=== PATIENT | male | born 1980 ===

== ENCOUNTER 2022-03-11 21:48 | Outpatient (CLI) | payer SELFPAY | END 2022-03-11 21:49 | disposition home or self-care (01) | PROVIDERS: Visit Provider Family Medicine | DX: S09.90XA Unspecified injury of head, initial encounter (principal); Y04.2XXA Assault by strike against or bumped into by another person, initial encounter; Y92.818 Other transport vehicle as the place of occurrence of the external cause | CPT/HCPCS: A0425; A0429 ==

== ENCOUNTER 2022-03-11 22:13 | Emergency (ER) | payer SELFPAY ==
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
[2022-03-11 22:28] VITALS: BP 126/68; PULSE 95; RESP 18; TEMP 36.4; O2SAT 99; BMI 21.7
[2022-03-11 22:42] VITALS: BP 126/68; PULSE 95; RESP 18; TEMP 36.4; O2SAT 99
[2022-03-11 22:46] LABS: Basophils Absolute Auto 0.01 K/uL (0.00-0.30); Basophils Percent Auto 0.2 % (0.0-3.0); Eosinophils Absolute Auto 0.06 K/uL (0.00-0.50); Hematocrit 32.7 % (37.0-53.0); Hemoglobin* 11.1 gm/dL (13.5-17.5); Mean Corpuscular HGB Conc 34 gm/dL (32-36); Mean Corpuscular Hemoglobin 27 pg (26-34); Mean Corpuscular Volume 79 fL (80-100); Monocytes Percent Auto 12.6 % (0.0-11.0); Neutrophils Percent Auto 34.2 % (42.0-72.0); Platelet Count* 309 K/uL (140-440); RDW Coefficient of Variation % 13.2 % (11.5-15.5); Red Blood Count 4.12 m/uL (4.30-5.90); White Blood Count* 5.73 K/uL (4.50-11.00)
[2022-03-11 22:48] LABS: Slide Review Reflex No
[2022-03-11 22:59] LABS: Chloride* 113 mmol/L (96-114); Potassium* 3.6 mmol/L (3.6-5.1); Sodium* 143 mmol/L (135-149)
[2022-03-11 23:02] LABS: Blood Urea Nitrogen* 12 mg/dL (5-24); Carbon Dioxide* 19 mmol/L (20-32); Creatinine* 0.5 mg/dL (0.5-1.5); Est. Creatinine Clearance* 203.61; Estimated Glomerular Filt Rate 133 ml/min; Ethanol* 0.18 % (0.01-0.03)
[2022-03-11 23:03] LABS: Calcium* 8.6 mg/dL (8.4-10.6); Glucose* 94 mg/dL (60-115)
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
--- NOTE | 2022-03-11 23:44 | ED.NURSE ---
d/c instructions given to mother of patient. mother verbalizes understanding. instymeds given. spnaish site interpreter via iPad.
[2022-03-11 23:49] VITALS: BP 115/84; PULSE 89; RESP 18; TEMP 36.4; O2SAT 99
[2022-03-11 23:52] VITALS: BP 115/84; PULSE 89; RESP 18; TEMP 36.4
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
== END 2022-03-11 23:53 | disposition home or self-care (01) ==
LOC: ED 23:47
PROVIDERS: Emergency Provider Family Medicine
DX: S06.0X0A Concussion without loss of consciousness, initial encounter (principal); Y04.2XXA Assault by strike against or bumped into by another person, initial encounter; S01.01XA Laceration without foreign body of scalp, initial encounter; F10.129 Alcohol abuse with intoxication, unspecified
CPT/HCPCS: 36415; 70450; 72125; 80048; 82077; 85025; 99284; 99285